=== PATIENT | female | born 1995 ===

== ENCOUNTER 2019-07-23 06:31 | Inpatient (IN) | payer MEDICAID ==
[2019-07-21 11:36] LABS: ABSOLUTE EOSINOPHILS # (AUTO) 0.4 10^3/uL (0.0-0.6); ABSOLUTE LYMPHOCYTES (AUTO) 1.7 10^3/uL (0.5-4.7); BASOPHILS % (AUTO) 0.2 % (0-2); EOSINOPHILS % (AUTO) 4.8 % (0-6); HEMATOCRIT 25.6 % (36.0-47.0); HEMOGLOBIN 8.7 g/dL (12.0-15.5); LYMPHOCYTES % (AUTO) 21.5 % (13-45); MEAN CORPUSCULAR HEMOGLOBIN 26.5 pg (27.0-33.4); MEAN CORPUSCULAR HGB CONC 33.8 g/dL (32.0-36.0); MEAN CORPUSCULAR VOLUME 79 fl (80-97); MONOCYTES % (AUTO) 11.9 % (3-13); PLATELET COUNT 227 10^3/uL (150-450); RED BLOOD COUNT 3.27 10^6/uL (3.72-5.28); RED CELL DISTRIBUTION WIDTH 16.1 % (11.5-14.0); SEGMENTED NEUTROPHILS % (AUTO) 61.6 % (42-78); TOTAL CELLS COUNTED % (AUTO) 100 %; WHITE BLOOD COUNT 8.1 10^3/uL (4.0-10.5)
[2019-07-21 11:44] LABS: APPEARANCE,URINE SLIGHTLY-CLOUDY; BILIRUBIN,URINE NEGATIVE (NEGATIVE); COLOR,URINE YELLOW; GLUCOSE, URINE NEGATIVE (NEGATIVE); KETONES,URINE NEGATIVE (NEGATIVE); LEUKOCYTE ESTERASE,URINE TRACE (NEGATIVE); NITRITE,URINE NEGATIVE (NEGATIVE); PROTEIN,URINE NEGATIVE (NEGATIVE); URINE SPECIFIC GRAVITY 1.027; UROBILINOGEN,URINE NEGATIVE mg/dL (<2.0)
[2019-07-21 11:59] LABS: URINE AMPHETAMINES SCREEN NEGATIVE; URINE BARBITURATES SCREEN NEGATIVE; URINE BENZODIAZEPINES SCREEN NEGATIVE; URINE COCAINE SCREEN NEGATIVE; URINE MARIJUANA (THC) SCREEN NEGATIVE; URINE METHADONE SCREEN NEGATIVE; URINE PHENCYCLIDINE SCREEN NEGATIVE
[~2019-07-23 06:31] MED LIST: CEFAZOLIN SODIUM 2 GM in DEXTROSE 5%-WATER 100 ML IV PRN; LACTATED RINGERS 1000 ML IV PRN; LIDOCAINE 0.5% INJ-PF (5 MG/ML) 50 ML SDV SUBCUT PRN; RINGERS SOLUTION,LACTATED 1,500 ML IV PRN
[2019-07-23] MEDS ORDERED: OXYTOCIN 10 UNIT/ML VIAL ONE (08:20)
[2019-07-23] MEDS ORDERED: MIDAZOLAM 2 MG/2 ML INJ ONE (08:20)
[2019-07-23] MEDS ORDERED: MORPHINE SULFATE 10 MG/ML INJ ONE (08:21)
[2019-07-23] MEDS ORDERED: OXYTOCIN/NORMAL SALINE 20 UNIT/1,000 ML RTUINJ ONE (08:21)
[2019-07-23] MEDS ORDERED: ONDANSETRON HCL INJ/PF 4 MG/2 ML SDV ONE (08:21)
[2019-07-23] MEDS ORDERED: DEXAMETHASONE SOD PHOSPHATE INJ 4 MG/1 ML VIAL ONE (09:33)
[2019-07-23] MEDS ORDERED: PHENYLEPHRINE HCL INJ/PF 10 MG/1 ML SDV ONE (09:33)
[2019-07-23] MEDS ORDERED: PROMETHAZINE HCL INJ 25 MG/1 ML VIAL IV PRN (10:09)
[2019-07-23] MEDS ORDERED: DIPH/PERTUSS(ACELL)/TETANUS VAC/PF 0.5 ML SYR (>=10YO) IM PRN (10:09)
[2019-07-23] MEDS ORDERED: OXYCODONE-ACETAMINOPHEN 5-325 MG TABLET PO PRN (10:09)
[2019-07-23] MEDS ORDERED: HYDROMORPHONE HCL INJ/PF 2 MG/ML AMPULE IV PRN (10:09)
[2019-07-23] MEDS ORDERED: OXYTOCIN/NORMAL SALINE 20 UNIT/1,000 ML RTUINJ IV PRN (10:09)
[2019-07-23] MEDS ORDERED: MEASLES,MUMPS&RUBELLA VACC/PF 0.5 ML VIAL SUBCUT PRN (10:09)
[2019-07-23] MEDS ORDERED: ACETAMINOPHEN 325 MG TABLET PO PRN (10:09)
[2019-07-23] MEDS ORDERED: SIMETHICONE 80 MG TAB.CHEW PO PRN (10:09)
--- NOTE | 2019-07-23 10:29 | Operative Report ---
Operative Report DATE OF SURGERY: 07/23/19 PREOPERATIVE DIAGNOSIS: Intrauterine at term. History of prior paramjit cali section x1. Severe anemia complicating POSTOPERATIVE DIAGNOSIS: Same as above with addition of adhesion between bladder and anterior uterus OPERATION: Repeat section SURGEON: ELISEO LINO ANESTHESIA: Spinal TISSUE REMOVED OR ALTERED: placenta COMPLICATIONS: none ESTIMATED BLOOD LOSS: 600 INTRAOPERATIVE FINDINGS: Normal appearing uterus with small adhesion anterior uterus and bladder. Bilateral fallopian tubes and ovaries are normal. Clear amniotic fluid. Alfonso breech presentation. Nuchal cord x2 . Female infant vigorous at cord clamping PROCEDURE: IV fluids: per anesthesia record 1200cc Urinary output: 250 cc clear yellow urine Findings: Normal-appearing uterus with small adhesion between anterior uterus and bladder, bilateral fallopian tubes and ovaries. Viable female with nuchal cord x2, alfonso breech Position: To recovery room in stable condition Description of procedure: The patient was taken to the operating room and spinal anesthesia was administered and found to be adequate. She was then placed on the OR table in the supine position with a slight leftward tilt. Patient was prepped and draped in usual sterile fashion. Ancef 2 gms was given IV prior to the procedure for infection prophylaxis. Timeout was taken. A Pfannenstiel skin incision was then made approximately 2-3 cm above the pubic symphysis at the level of prior scar and carried down to level the rectus fascia. The rectus fascia was then nicked in the midline with a scalpel and the fascial incision was extended laterally with use of curved Fregoso scissors. The rectus fascia was then grasped with 2 Kocker clamps elevated and the underlying rectus muscle was dissected off both bluntly and sharply. Any bleeding controlled with cautery. The rectus muscles were then split in the midline and the peritoneum was entered. The peritoneal incision was then extended by manually stretching the peritoneum. The bladder blade was positioned. Scar tissue noted as above. Using pick ups and metzenbaum scissors a bladder flap was created. The bladder was noted to be out of harm's way and bladder blade was repositioned. A scalpel was then used in the lower uterine for the hysterotomy, slowly until amniotomy was obtained a large amount of fluid was noted. The uterine incision was then manually stretched. The was noted to be in vertex postion -deep in the pelvis. Using a hand deep in pelvis, the head was elevated and brought to the hysterotomy incision. The buttocks were noted presenting part, and attempt made to delivery buttucks but some difficulty to both feet delivered without difficulty and then rest of body to the torso delivered. COntinued delivery to the scapula and body rotated allowing flexion of each elbow and delivery of each arm. The head then delivered with minimal difficulty. The cord was cut clamped and the was handed off to the nurse awaiting. was crying prior to hand off. The placenta was manually delivered. Using a lap gauze the uterus was cleared of all clots and debris. The uterus was then exteriorized and a bladder blade was repositioned. The uterine incision was then closed with 0 Chromic suture in a running locked fashion. A second layer of the same suture was used in a running locked imbricated fashion. The uterine incision was inspected and noted to be hemostatic. The posterior aspect of the uterus was then inspected and anatomy was seen as above. The uterus was returned to its normal anatomic position within the abdominal cavity. Warm saline irrigation was used to clear all clots and debris from the abdomen. The uterine incision was inspected once more and noted to remain hemostatic. The bladder blade was removed and the peritoneum was closed with 2-0 chromic in a running fashion. The rectus muscles were then reapproximated and the rectus fascia was closed with a #1 PDS in a running fashion. The subcutaneous tissue was then inspected and any bleeding was controlled with Bovie electrocautery. The subcutaneous tissue was then closed with 2-0 Plain Gut suture in a running fashion. The skin was then closed with 3-0 Monocryl in a running subcuticular fashion. The skin incision was then clean dried and Dermabond was applied over the skin incision. All instrument sponge and needle counts were correct x3 for the procedure the patient tolerated the procedure well. She will proceed to recovery room in stable condition
--- NOTE | 2019-07-23 10:31 | PDOC DELIVERY SUMMARY ---
Delivery Summary - Maternal Hx : III Hx # Term Pregnancies: 1 Hx Total # of Abortions (Sponateous & Elective): 1 Number of Living Children: 1 THOMAS: 07/23/19 Ruptured Membranes: AROM Time of Rupture: 09:25 Fluids: Clear - Delivery Presentation: Breech Heart Rate Monitoring: Done Pre-Operatively Support Person Present: Yes : Scheduled Placenta: Within Normal Limits Nuchal Cord: Yes - times 2 Delivery of Placenta Date: 07/23/19 Delivery of Placenta Time: 09:29 Estimated Blood Loss: 600cc - Medications Type of Anesthesia:: Spinal - Infant Assess and Care Baby 1 Female Delivery of Date: 07/23/19 Delivery of Infant Time: 09:28 at 1 minute: 8 at 5 minutes: 9 Preprinted Number On Band: [id number] Infant Skin to Skin: No To Nursery At: 09:37 Mode of Transport: Bassinet Infant Delivery Weight: 2,795 Delivery Length: 18 in - Delivery Personnel Nursery RN: MONAE WALDEN
[2019-07-23] MEDS ORDERED: HYDROMORPHONE HCL INJ/PF 2 MG/ML AMPULE ONE (10:37)
[2019-07-23] MEDS ORDERED: KETOROLAC TROMETHAMINE INJ/PF 30 MG/1 ML SDV ONE (10:37)
[2019-07-23] MEDS: KETOROLAC TROMETHAMINE INJ/PF 30 MG/1 ML SDV IV SCH ×2 (10:40→17:12)
[2019-07-23] MEDS ORDERED: ACETAMINOPHEN 1,000 MG/100 ML RTUPB IV ONE (10:54)
[2019-07-23] MEDS ORDERED: DIPHENHYDRAMINE HCL 50 MG/ML VIAL ONE (11:03)
[2019-07-23 11:13] LABS: HEMATOCRIT 25.7 % (36.0-47.0); HEMOGLOBIN 8.8 g/dL (12.0-15.5); MEAN CORPUSCULAR HEMOGLOBIN 26.6 pg (27.0-33.4); MEAN CORPUSCULAR HGB CONC 34.2 g/dL (32.0-36.0); MEAN CORPUSCULAR VOLUME 78 fl (80-97); PLATELET COUNT 224 10^3/uL (150-450); RED CELL DISTRIBUTION WIDTH 16.1 % (11.5-14.0); WHITE BLOOD COUNT 10.8 10^3/uL (4.0-10.5)
[2019-07-23] MEDS ORDERED: DIPHENHYDRAMINE HCL 50 MG/ML VIAL IV ONE (11:42)
[2019-07-23] MEDS ORDERED: ACETAMINOPHEN 1,000 MG/100 ML RTUPB IV PRN (11:49)
[2019-07-23] MEDS: OXYCODONE-ACETAMINOPHEN 5-325 MG TABLET PO PRN ×3 (12:51→21:50)
[2019-07-23] MEDS: DOCUSATE SODIUM 100 MG CAPSULE PO SCH (17:11)
[2019-07-24] MEDS: KETOROLAC TROMETHAMINE INJ/PF 30 MG/1 ML SDV IV SCH ×2 (01:52→07:51)
[2019-07-24] MEDS: OXYCODONE-ACETAMINOPHEN 5-325 MG TABLET PO PRN ×5 (03:42→21:38)
[2019-07-24] MEDS: PRENATAL VITAMIN W DHA CAPSULE PO SCH (09:55)
[2019-07-24] MEDS: DOCUSATE SODIUM 100 MG CAPSULE PO SCH ×2 (09:55→17:21)
--- NOTE | 2019-07-24 11:05 | PDOC PROGRESS REPORT ---
Subjective-OB Progress Note for:: 07/24/19 Physical Exam (OB) Vital Signs: Temp Pulse Resp BP Pulse Ox 97.4 F 66 16 115/75 100 07/24/19 07:49 07/24/19 07:49 07/24/19 07:49 07/24/19 07:49 07/24/19 07:49 Intake & Output 07/23/19 07/24/19 07/25/19 06:59 06:59 06:59 Intake Total 480 400 Output Total 2300 1700 Balance -1820 -1300 - General Note:: Pale - PIH/Pre-Eclampsia Clonus: Negative Headache: Absent Epigastric Pain: No Visual Changes: No - Incision: Well Approximated Closure Type: Surgical Glue - Lochia Lochia Amount: Scant < 10 ml Lochia Color: Rubra/Red - Abdomen Description: Tender, Soft Hernia Present: No Bowel Sounds: Normoactive Flatus Presence: Present Stool: No Fundal Description: Firm, Midline Fundal Height: u/u - u/2 Objective-Diagnostic Laboratory: 07/23/19 10:50 07/23/19 10:50 WBC 10.8 H RBC 3.30 L Hgb 8.8 L Hct 25.7 L MCV 78 L MCH 26.6 L MCHC 34.2 RDW 16.1 H Plt Count 224
[2019-07-24] MEDS: IBUPROFEN 800 MG TABLET PO PRN (13:56)
[2019-07-25] MEDS: IBUPROFEN 800 MG TABLET PO PRN ×2 (00:32→09:09)
[2019-07-25] MEDS: OXYCODONE-ACETAMINOPHEN 5-325 MG TABLET PO PRN (05:23)
[2019-07-25] MEDS: DOCUSATE SODIUM 100 MG CAPSULE PO SCH (09:09)
[2019-07-25] MEDS: PRENATAL VITAMIN W DHA CAPSULE PO SCH (09:09)
--- NOTE | 2019-07-25 11:40 | PDOC DISCHARGE SUMMARY ---
Impression - Admit/DC Date/PCP Admission Date/Primary Care Provider: 07/23/19 06:31 Discharge Date: 07/25/19 - Discharge Diagnosis (1) Anemia Is this a current diagnosis for this admission?: Yes (2) Delivery by elective caesarean section Is this a current diagnosis for this admission?: Yes (3) Is this a current diagnosis for this admission?: Yes - Additional Information Resuscitation Status: Full Code Discharge Diet: As Tolerated, Regular Discharge Activity: Balance Activity w/Rest, No Lifting Over 10 Pounds, No Lifting/Push/Pulling, Pelvic Rest, No tub bath Prescriptions: Oxycodone HCl/Acetaminophen [Percocet 5-325 mg Tablet] 1 tab PO Q4HP PRN #30 tablet PRN Reason: Ibuprofen [Motrin 800 mg Tablet] 800 mg PO Q8HP PRN #60 tablet PRN Reason: Docusate Sodium [Colace 100 mg Capsule] 100 mg PO BID #20 capsule Ferrous Sulfate [Ferosul] 325 mg PO BID #60 tablet Home Medications: Docusate Sodium [Colace 100 mg Capsule] 100 mg PO BID #20 capsule 07/25/19 Ferrous Sulfate [Ferosul] 325 mg PO BID #60 tablet 07/25/19 Ibuprofen [Motrin 800 mg Tablet] 800 mg PO Q8HP PRN #60 tablet 07/25/19 Oxycodone HCl/Acetaminophen [Percocet 5-325 mg Tablet] 1 tab PO Q4HP PRN #30 tablet 07/25/19 HPI Reason(s) for Admission: Ceasarean Section-Repeat Procedures: NST Intrapartum Procedure(s): : Low Cervical, Transverse Results Laboratory Results: WBC 10.8 10^3/uL (4.0-10.5) H 07/23/19 10:50 RBC 3.30 10^6/uL (3.72-5.28) L 07/23/19 10:50 Hgb 8.8 g/dL (12.0-15.5) L 07/23/19 10:50 Hct 25.7 % (36.0-47.0) L 07/23/19 10:50 MCV 78 fl (80-97) L 07/23/19 10:50 MCH 26.6 pg (27.0-33.4) L 07/23/19 10:50 MCHC 34.2 g/dL (32.0-36.0) 07/23/19 10:50 RDW 16.1 % (11.5-14.0) H 07/23/19 10:50 Plt Count 224 10^3/uL (150-450) 07/23/19 10:50 Lymph % (Auto) 21.5 % (13-45) 07/21/19 10:35 [place] % (Auto) 11.9 % (3-13) 07/21/19 10:35 Eos % (Auto) 4.8 % (0-6) 07/21/19 10:35 Baso % (Auto) 0.2 % (0-2) 07/21/19 10:35 Absolute Neuts (auto) 5.0 10^3/uL (1.7-8.2) 07/21/19 10:35 Absolute Lymphs (auto) 1.7 10^3/uL (0.5-4.7) 07/21/19 10:35 Absolute Monos (auto) 1.0 10^3/uL (0.1-1.4) 07/21/19 10:35 Absolute Eos (auto) 0.4 10^3/uL (0.0-0.6) 07/21/19 10:35 Absolute Basos (auto) 0.0 10^3/uL (0.0-0.2) 07/21/19 10:35 Seg Neutrophils % 61.6 % (42-78) 07/21/19 10:35 Urine Color YELLOW 07/21/19 10:42 Urine Appearance SLIGHTLY-CLOUDY 07/21/19 10:42 Urine pH 6.0 (5.0-9.0) 07/21/19 10:42 Ur Specific [place] 1.027 07/21/19 10:42 Urine Protein NEGATIVE mg/dL (NEGATIVE) 07/21/19 10:42 Urine Glucose (UA) NEGATIVE mg/dL (NEGATIVE) 07/21/19 10:42 Urine Ketones NEGATIVE mg/dL (NEGATIVE) 07/21/19 10:42 Urine Blood NEGATIVE (NEGATIVE) 07/21/19 10:42 Urine Nitrite NEGATIVE (NEGATIVE) 07/21/19 10:42 Urine Bilirubin NEGATIVE (NEGATIVE) 07/21/19 10:42 Urine Urobilinogen NEGATIVE mg/dL (<2.0) 07/21/19 10:42 Ur Leukocyte Esterase TRACE (NEGATIVE) H 07/21/19 10:42 Urine WBC (Auto) 6 /HPF 07/21/19 10:42 Urine RBC (Auto) 1 /HPF 07/21/19 10:42 Urine Bacteria (Auto) TRACE /HPF 07/21/19 10:42 Squamous Epi Cells Auto 4 /HPF 07/21/19 10:42 Urine Mucus (Auto) OCC /LPF 07/21/19 10:42 Urine Ascorbic Acid NEGATIVE (NEGATIVE) 07/21/19 10:42 Urine Opiates Screen NEGATIVE 07/21/19 10:42 Urine Methadone Screen NEGATIVE 07/21/19 10:42 Ur Barbiturates Screen NEGATIVE 07/21/19 10:42 Ur Phencyclidine Scrn NEGATIVE 07/21/19 10:42 Ur Amphetamines Screen NEGATIVE 07/21/19 10:42 U Benzodiazepines Scrn NEGATIVE 07/21/19 10:42 Urine Cocaine Screen NEGATIVE 07/21/19 10:42 U Marijuana (THC) Screen NEGATIVE 07/21/19 10:42 Blood Type A POSITIVE 07/21/19 10:35 Blood Type Confirm A POSITIVE 07/23/19 10:50 Antibody Screen NEGATIVE 07/21/19 10:35 Crossmatch See Detail 07/21/19 10:35 Plan Plan of Treatment: f/u at [facility] as scheduled or in 1 wk Time Spent: Less than 30 Minutes
[2019-07-25 12:28] VITALS: BP 113/69
== END 2019-07-25 14:41 | disposition home or self-care (01) | DRG 788 ==
LOC: 2S 06:31
PROVIDERS: ADMIT Obstetrics & Gynecology; ATTEND Obstetrics & Gynecology
PROC: 3E0234Z Introduction of Serum, Toxoid and Vaccine into Muscle, Percutaneous Approach (ICD-10-PCS; 2019-07-23)
PROC: 10D00Z1 Extraction of Products of Conception, Low, Open Approach (ICD-10-PCS; principal; 2019-07-23 08:15)
DX: O32.1XX0 Maternal care for breech presentation, not applicable or unspecified (principal); O34.211 Maternal care for low transverse scar from previous cesarean delivery; O69.81X0 Labor and delivery complicated by cord around neck, without compression, not applicable or unspecified; O99.02 Anemia complicating childbirth; D64.9 Anemia, unspecified; Z23 Encounter for immunization; Z37.0 Single live birth
CPT/HCPCS: 1961; 36415; 59025; 80307; 81001; 85025; 86850; 86900; 86901; 86920; 90715; 94760; 94799; J0131; J0690; J1100; J1170; J1200; J1885; J2250; J2270; J2370; J2405; J2590; J3490; J7060; J7120